=== PATIENT | female | born 1995 | race Caucasian/White ===

== ENCOUNTER → 2023-09-09 | Outpatient (CLI) | payer OTHER | END | disposition home or self-care (01) | LOC: MSR 10:02 | PROVIDERS: ATTEND Chiropractor | DX: M17.0 Bilateral primary osteoarthritis of knee (principal); E55.9 Vitamin D deficiency, unspecified; M25.861 Other specified joint disorders, right knee | CPT/HCPCS: 82306; 73562-TC ==